=== PATIENT | male | born 1935 | race Caucasian/White ===

== ENCOUNTER → 2024-01-12 06:35 | Outpatient (REF) | payer OTHER, SELFPAY ==
[2024-01-12 07:36] LABS: % Basophils 1.6 % (0-2); % Eosinophils 3.3 % (0-6); % Immature Granulocytes 0.6 % (0-0.5); % Lymphocytes 33.5 % (20.5-51.1); % Monocytes 15.4 % (1.7-9.3); % Neutrophils 45.6 % (42.2-75.2); Absolute Basophils 0.1 10^3/uL (0-0.2); Absolute Eosinophils 0.2 10^3/uL (0-0.7); Absolute Lymphocytes 1.6 10^3/uL (1.2-3.4); Absolute Monocytes 0.8 10^3/uL (0.1-0.6); Absolute Neutrophils 2.2 10^3/uL (1.4-6.5); Hematocrit 42.1 % (39.0-52.0); Hemoglobin 15.2 g/dL (13.0-18.0); Mean Corp Hgb Conc. 36.1 g/dL (33.0-37.0); Mean Corpuscular Hgb 32.3 pg (27.0-31.0); Mean Corpuscular Volume 89.4 fL (80.0-94.0); Mean Platelet Volume 11.4 fL (7.4-10.4); Nucleated Red Blood Cells % 0 % (-); Platelet Count 273 10^3/uL (130-400); Red Blood Cell Count 4.71 10^6/uL (4.70-6.10); Red Cell Dist. Width 13.5 % (11.5-14.5); White Blood Cell Count 4.9 10^3/uL (4.8-10.8)
[2024-01-12 08:06] LABS: Blood Urea Nitrogen 17 mg/dl (9-20); Calcium 9.7 mg/dl (8.4-10.2); Carbon Dioxide 29 mmol/L (22-30); Chloride 102 mmol/L (98-107); Glucose 183 mg/dl (70-99); Potassium 4.5 mmol/L (3.5-5.1); Sodium 143 mmol/L (135-145); eGFR > 60.00
== END ==
LOC: RCS 06:35
PROVIDERS: ATTENDING PHYSICIAN Orthopaedic Surgery; FAMILY PHYSICIAN Family Medicine
DX: Z01.818 Encounter for other preprocedural examination (principal)
CPT/HCPCS: 36415; 80048; 85025; 93005

== ENCOUNTER 2024-01-13 06:26 | Day surgery (SDC) | payer OTHER, SELFPAY ==
--- NOTE | 2024-01-12 09:33 | PTCARENOTE ---
Patients 01/12 ECG abnormal- reviewed by Dr. Cortez- no additional interventions required
[2024-01-13] VITALS (9 sets, daily range): BP systolic 104–139; BP diastolic 55–82; BMI 24.6
[2024-01-13 10:25] LABS: Glucose - Point of Care 123 mg/dl (70-99)
[2024-01-13] MEDS: TYLENOL 1000 MG PO (10:44)
[2024-01-13] MEDS: NORMOSOL-R/PLASMALYTE-A 1000 IV (10:45)
[2024-01-13] MEDS: CELEBREX 200 MG PO (10:45)
[2024-01-13 12:33] LABS: Glucose - Point of Care 112 mg/dl (70-99)
[2024-01-13 14:29] LABS: Glucose - Point of Care 99 mg/dl (70-99)
== END 2024-01-13 16:15 | disposition home or self-care (01) ==
LOC: SDS 06:26
PROVIDERS: ATTENDING PHYSICIAN Orthopaedic Surgery; FAMILY PHYSICIAN Family Medicine
DX: M72.0 Palmar fascial fibromatosis [Dupuytren] (principal)
CPT/HCPCS: 26123; 88304; 82962